=== PATIENT | male | born 1940 | race Caucasian/White ===

== ENCOUNTER 2022-02-06 20:55 | Inpatient (IN) | payer OTHER ==
[~2022-02-06] VITALS: Ht 180.3 cm; Wt 73.9 kg
[2022-02-07 00:42] LABS: HEMOGLOBIN 15.6 gm/dl (14.0-17.5); RED BLOOD COUNT 5.27 M/UL (4.20-5.50); WHITE BLOOD COUNT 11.4 K/UL (4.5-11.0)
[2022-02-07 01:17] LABS: BUN/CREATININE RATIO 11 (0-10)
[2022-02-07] MEDS ORDERED: NAMENDA 5 MG TAB5 MG PO (11:35)
[2022-02-07] MEDS ORDERED: PROAIR HFA8.5 GM INH (11:36)
[2022-02-07] MEDS ORDERED: DICYCLOMINE HCL10 MG PO (11:36)
[2022-02-07] MEDS ORDERED: ATORVASTATIN CA40 MG PO (11:36)
[2022-02-07] MEDS ORDERED: DILT-XR180 MG PO (11:36)
[2022-02-07] MEDS ORDERED: CLOPIDOGREL75 MG PO (11:36)
[2022-02-07] MEDS ORDERED: OMEPRAZOLE20 MG PO (11:37)
[2022-02-07] MEDS ORDERED: SYNTHROID125 MCG PO (11:37)
[2022-02-08 03:01] LABS: HEMOGLOBIN 15.2 gm/dl (14.0-17.5); RED BLOOD COUNT 5.2 M/UL (4.20-5.50); WHITE BLOOD COUNT 11.5 K/UL (4.5-11.0)
[2022-02-09 02:28] LABS: HEMOGLOBIN 14.5 gm/dl (14.0-17.5); RED BLOOD COUNT 4.89 M/UL (4.20-5.50); WHITE BLOOD COUNT 13.9 K/UL (4.5-11.0)
[2022-02-10 03:01] LABS: HEMOGLOBIN 12.8 gm/dl (14.0-17.5)
[2022-02-10 03:06] LABS: RED BLOOD COUNT 4.39 M/UL (4.20-5.50); WHITE BLOOD COUNT 10.4 K/UL (4.5-11.0)
[2022-02-11 07:33] LABS: HEMOGLOBIN 12.2 gm/dl (14.0-17.5); RED BLOOD COUNT 4.23 M/UL (4.20-5.50)
[2022-02-11 07:35] LABS: WHITE BLOOD COUNT 5.8 K/UL (4.5-11.0)
[2022-02-12 03:03] LABS: HEMOGLOBIN 11.6 gm/dl (14.0-17.5); RED BLOOD COUNT 3.94 M/UL (4.20-5.50); WHITE BLOOD COUNT 5.6 K/UL (4.5-11.0)
[2022-02-12 03:34] LABS: BUN/CREATININE RATIO 26 (0-10)
[2022-02-13 12:43] LABS: HEMOGLOBIN 12.4 gm/dl (14.0-17.5); RED BLOOD COUNT 4.2 M/UL (4.20-5.50)
[2022-02-13 12:57] LABS: WHITE BLOOD COUNT 9.3 K/UL (4.5-11.0)
[2022-02-13 13:10] LABS: BUN/CREATININE RATIO 15 (0-10)
[2022-02-14 01:41] LABS: HEMOGLOBIN 12.1 gm/dl (14.0-17.5); RED BLOOD COUNT 4.15 M/UL (4.20-5.50); WHITE BLOOD COUNT 9.6 K/UL (4.5-11.0)
[2022-02-14 02:00] LABS: BUN/CREATININE RATIO 15 (0-10)
[2022-02-14] MEDS ORDERED: ROXICODONE5 MG PO (15:41)
[2022-02-14] MEDS ORDERED: PROMETHAZINE12.5 M1 PO (15:55)
== END 2022-02-14 18:00 | disposition home health service (06) | DRG 330 ==
LOC: PROG CARE 20:55
PROVIDERS: Internal Medicine; Surgery; ADMIT Internal Medicine
PROC: 0DNW4ZZ Release Peritoneum, Percutaneous Endoscopic Approach (ICD-10-PCS; principal; 2022-02-08 09:35)
PROC: 0DB80ZZ Excision of Small Intestine, Open Approach (ICD-10-PCS; principal; 2022-02-08 09:35)
PROC: 0WQF0ZZ Repair Abdominal Wall, Open Approach (ICD-10-PCS; principal; 2022-02-08 09:35)
DX: K43.6 Other and unspecified ventral hernia with obstruction, without gangrene (principal); K56.7 Ileus, unspecified; E87.1 Hypo-osmolality and hyponatremia; K40.30 Unilateral inguinal hernia, with obstruction, without gangrene, not specified as recurrent; N17.9 Acute kidney failure, unspecified; K91.71 Accidental puncture and laceration of a digestive system organ or structure during a digestive system procedure; I71.4 Abdominal aortic aneurysm, without rupture; I10 Essential (primary) hypertension; E03.9 Hypothyroidism, unspecified; E86.1 Hypovolemia; F02.80 Dementia in other diseases classified elsewhere, unspecified severity, without behavioral disturbance, psychotic disturbance, mood disturbance, and anxiety; G30.0 Alzheimer's disease with early onset; I25.10 Atherosclerotic heart disease of native coronary artery without angina pectoris; K21.9 Gastro-esophageal reflux disease without esophagitis; Z82.49 Family history of ischemic heart disease and other diseases of the circulatory system; Z95.1 Presence of aortocoronary bypass graft; Z79.01 Long term (current) use of anticoagulants; Z95.5 Presence of coronary angioplasty implant and graft; Z79.899 Other long term (current) drug therapy; Y83.8 Other surgical procedures as the cause of abnormal reaction of the patient, or of later complication, without mention of misadventure at the time of the procedure
CPT/HCPCS: 36415; 71045; 73502; 74018; 80048; 80053; 81001; 82550; 82553; 82570; 82962; 83605; 83735; 83880; 83935; 84100; 84132; 84439; 84443; 84484; 84550; 85025; 85027; 85379; 85610; 86140; 87040; 87081; 87086; 93005; 93970; 94760; 97110-GP-CQ; 97116; 97116-GP-CQ; 97161; 97165; 97530; C1781; C9113; J0171; J0360; J0690; J0696; J1100; J1170; J1650; J2001; J2270; J2405; J2543; J2550; J2765; J3010; J3475